=== PATIENT | female | born 1975 | race Caucasian/White ===

== ENCOUNTER 2018-11-26 10:37 | Emergency (ER) | payer SELFPAY ==
[~2018-11-26] VITALS: Ht 160 cm; Wt 63.0 kg
[~2018-11-26 10:37] MED LIST: ACET325T33 PO; IBUP-1542 PO; PRED20TA PO; TRIA15CR55 TOP
[2018-11-26 10:47] VITALS: BP 171/89; PULSE 80; RESP 18; Ht 160 cm; Wt 63.0 kg
== END 2018-11-26 12:15 | disposition home or self-care (01) ==
LOC: E/R 10:37
DX: K64.4 Residual hemorrhoidal skin tags (principal)
CPT/HCPCS: 99284